=== PATIENT | male | born 1965 | race Hispanic/Latino ===

== ENCOUNTER → 2018-03-12 | Outpatient (CLI) | payer SELFPAY | END | disposition home or self-care (01) | LOC: OIH 07:39 | PROVIDERS: ATTEND Neurological Surgery | DX: Z13.6 Encounter for screening for cardiovascular disorders (principal) | CPT/HCPCS: 75571 ==

== ENCOUNTER → 2018-03-12 | Outpatient (CLI) | payer OTHER ==
[~2018-03-12] MED LIST: IOHEXOL 350 MG/ML 100ML INFUS..BTL IV ONE
== END | disposition home or self-care (01) ==
LOC: OIH 07:27
PROVIDERS: ATTEND Neurological Surgery
DX: K57.90 Diverticulosis of intestine, part unspecified, without perforation or abscess without bleeding (principal); M47.894 Other spondylosis, thoracic region; J84.10 Pulmonary fibrosis, unspecified; N32.89 Other specified disorders of bladder
CPT/HCPCS: 71270; 74178; Q9967